=== PATIENT | female | born 1965 | race Caucasian/White ===

== ENCOUNTER 2017-05-28 18:52 | Emergency (ER) | payer BC ==
[~2017-05-28] VITALS: Ht 167.6 cm; Wt 58.5 kg
[~2017-05-28 18:52] MED LIST: K-DUR 20 MEQ T20 MEQ PO; VERAMYST10 GM NS; VICODIN PO; ZOFRAN ODT4 MG PO
[2017-05-28] MEDS ORDERED: FLONASE 0.05%50 MCG NASAL (19:08)
[2017-05-28] MEDS ORDERED: [UNRECOGNIZED DRUG - CODE] PO (19:10)
[2017-05-28] MEDS ORDERED: PHENERGAN 25 MG25 M1 PO (19:40)
== END 2017-05-28 19:53 | disposition home or self-care (01) ==
LOC: ER 18:52
DX: J01.00 Acute maxillary sinusitis, unspecified (principal); J01.20 Acute ethmoidal sinusitis, unspecified; J01.10 Acute frontal sinusitis, unspecified; R11.0 Nausea; Z88.1 Allergy status to other antibiotic agents